=== PATIENT | male | born 1950 | race Caucasian/White ===

== ENCOUNTER 2017-02-11 16:57 | Observation (INO) | payer MEDICARE, OTHER ==
[~2017-02-11] VITALS: Ht 175.3 cm; Wt 79.1 kg
[2017-02-11] MEDS ORDERED: FLOMAX 0.40.4 MG/CAP PO (19:45)
[2017-02-11] MEDS ORDERED: ASPIRIN 32325 MG/TAB PO (19:45)
[2017-02-11] MEDS ORDERED: PRIL40 PO (19:45)
[2017-02-11] MEDS ORDERED: LIPITOR 40MG TA40 MG PO (19:45)
[2017-02-11] MEDS ORDERED: MULTI VITAMINS1 TAB PO (19:46)
[2017-02-11] MEDS ORDERED: OSTEO-BI-FLEX 21 TAB PO (19:46)
[2017-02-11] MEDS ORDERED: CALCIUM CARBON650 M2 (19:46)
[2017-02-12] VITALS (7 sets, daily range): BP systolic 97–110; BP diastolic 58–69; PULSE 55–71; TEMP 97.6–98.5
[2017-02-12 06:28] LABS: BASO % 0.2 % (0.0-2.0); EOS # 0.1 (0.0-0.7); EOS % 1.5 % (0-4.0); GRAN # 5.8 (1.4-6.5); HEMATOCRIT 37.6 % (42.0-52.0); HEMOGLOBIN 12.6 g/dl (13.5-18.0); LYMPH # 1.9 (1.2-3.4); LYMPH % 21.2 % (20.0-51.0); MEAN CELL VOLUME 91 fl (80.0-100.0); MEAN CORPUSCULAR HEMOGLOBIN 30 pg (27.0-31.0); MEAN CORPUSCULAR HGB CONC 34 g/dl (33.0-37.0); MEAN PLATELET VOLUME 9.3 fl (7.4-10.4); MONO % 10.9 % (1.7-9.3); PLATELET COUNT 192 K/mm3 (130-400); RED BLOOD COUNT 4.15 M/mm3 (4.20-5.60); REDCELL DISTRIBUTION WIDTH-CV 13.2 % (11.5-14.5)
[2017-02-12 06:40] LABS: CALCIUM 9.1 mg/dL (8.4-10.2); CREATININE, serum 1.03 mg/dL (0.66-1.25); POTASSIUM 3.8 mmol/L (3.4-5.0)
[2017-02-13 02:12] VITALS: BP 108/64; PULSE 58; TEMP 98
[2017-02-13 05:59] VITALS: BP 110/66; PULSE 59; TEMP 97.7
== END 2017-02-13 09:30 | disposition home or self-care (01) ==
LOC: SURG 16:57
PROVIDERS: Surgery
DX: K57.20 Diverticulitis of large intestine with perforation and abscess without bleeding (principal); E78.5 Hyperlipidemia, unspecified; K21.9 Gastro-esophageal reflux disease without esophagitis; N40.0 Benign prostatic hyperplasia without lower urinary tract symptoms; Z98.52 Vasectomy status; Z87.891 Personal history of nicotine dependence; Z80.3 Family history of malignant neoplasm of breast; Z83.71 Family history of colonic polyps
CPT/HCPCS: G0378; G0379; J2543; J7120